=== PATIENT | male | born 1990 | race African-American/Black ===

== ENCOUNTER 2017-01-08 01:14 | Emergency (ER) | payer SELFPAY ==
[~2017-01-08] VITALS: Ht 170.2 cm; Wt 70.0 kg
[2017-01-08] MEDS ORDERED: TraMADol HCL 50 MG TABLET PO ONE (02:30)
[2017-01-08 03:17] VITALS: BP 114/77
== END 2017-01-08 03:21 | disposition home or self-care (01) ==
LOC: EMS 01:17
DX: S92.412A Displaced fracture of proximal phalanx of left great toe, initial encounter for closed fracture (principal); F17.210 Nicotine dependence, cigarettes, uncomplicated; W22.8XXA Striking against or struck by other objects, initial encounter; Y93.79 Activity, other specified sports and athletics; Y92.89 Other specified places as the place of occurrence of the external cause; Y99.8 Other external cause status
CPT/HCPCS: 99284

== ENCOUNTER 2020-05-29 12:07 | Emergency (ER) | payer SELFPAY ==
[~2020-05-29] VITALS: Ht 167.6 cm; Wt 75.0 kg
[2020-05-29] MEDS ORDERED: KETOROLAC TROMETHAMINE 30 MG/ML VIAL IM ONE (14:15)
[2020-05-29] MEDS ORDERED: LIDOCAINE 5% TRANSDERMAL PATCH TD ONE (14:15)
[2020-05-29] MEDS ORDERED: METHOCARBAMOL 500 MG TABLET PO ONE (14:15)
[2020-05-29 14:33] VITALS: BP 135/68
== END 2020-05-29 14:45 | disposition home or self-care (01) ==
LOC: EMS 12:19
DX: M25.511 Pain in right shoulder (principal); M25.521 Pain in right elbow; R07.81 Pleurodynia; F17.210 Nicotine dependence, cigarettes, uncomplicated; V49.9XXA Car occupant (driver) (passenger) injured in unspecified traffic accident, initial encounter; Y93.89 Activity, other specified; Y92.488 Other paved roadways as the place of occurrence of the external cause; Y99.8 Other external cause status
CPT/HCPCS: 71046; 73030; 73080; 96372; 99284; J1885